=== PATIENT | male | born 1960 | race Caucasian/White ===

== ENCOUNTER 2023-09-18 07:30 | Outpatient (RCR) | payer MEDICARE, OTHER, BC, SELFPAY | END 2023-11-07 16:41 | disposition home or self-care (01) | PROVIDERS: PCP Internal Medicine; Visit Provider Student in an Organized Health Care Education/Training Program | DX: R42 Dizziness and giddiness (principal); Z51.89 Encounter for other specified aftercare | CPT/HCPCS: 97110; 97140; 97161 ==